=== PATIENT | male | born 1970 | race Caucasian/White ===

== ENCOUNTER 2021-03-13 18:01 | Inpatient (IN) | payer MEDICAID ==
[~2021-03-13] VITALS: Ht 182.9 cm; Wt 65.8 kg
--- NOTE | 2021-03-13 18:24 | NUR ---
pt self presents to ed. ambulatory w/ steady gait. states he started feeling dizzy 30-45 mins ago while walking going to [facility]. pt endorses sob x 1 week but is satting 100% on room air. stable vitals. 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 awaiting md peter.
--- NOTE | 2021-03-13 18:32 | NUR ---
madelinep pa at bedside for eval.
--- NOTE | 2021-03-13 19:02 | NUR ---
radiology at bedside for chest xray.
[2021-03-13 19:11] LABS: BASOPHILS # (AUTO) 0.1 K/uL (0.0-0.2); BASOPHILS % (AUTO) 0.6 % (0.0-2.0); EOSINOPHILS % (AUTO) 4.1 % (0.0-6.0); HEMATOCRIT 34 % (39-51); LYMPHOCYTES # (AUTO) 1.3 K/uL (0.8-4.8); LYMPHOCYTES % (AUTO) 9.6 % (20.0-44.0); MEAN CORPUSCULAR HGB CONC 32 g/dl (31.0-36.0); MEAN CORPUSCULAR VOLUME 81 fL (80-96); MONOCYTES # (AUTO) 1.3 K/uL (0.1-1.30); MONOCYTES % (AUTO) 9.8 % (2.0-12.0); NEUTROPHILS # (AUTO) 9.9 K/uL (1.8-8.9); NEUTROPHILS % (AUTO) 75.9 % (43.0-81.0); PLATELET COUNT (AUTO) 271 K/uL (150-450); RED BLOOD CELL COUNT(AUTO) 4.26 MIL/uL (4.5-6.0); WHITE BLOOD COUNT (AUTO) 13.1 K/uL (4.3-11.0)
[2021-03-13 19:29] LABS: CREATININE 1.6 mg/dL (0.6-1.3); POTASSIUM 4.1 mmol/L (3.5-5.1)
--- NOTE | 2021-03-13 19:36 | NUR ---
TROP 2.999
[2021-03-13] MEDS ORDERED: ASPIRIN 325 MG TABLET ONE (19:41)
[2021-03-13] MEDS ORDERED: IV NS 0.9% 1,000 ML BAG IV ONE (20:00)
[2021-03-13] MEDS ORDERED: ENOXAPARIN SODIUM 60 MG/0.6 ML DISP.SYRIN SQ ONE ×2 (20:00→20:08)
[2021-03-13] MEDS ORDERED: ASPIRIN 325 MG TABLET PO ONE (20:00)
--- NOTE | 2021-03-13 20:02 | NUR ---
DR. AGUILERA SPEAKING WITH DR. DE LA FUENTE
[2021-03-13] MEDS ORDERED: ENOXAPARIN SODIUM 80 MG/0.8 ML DISP.SYRIN SQ ONE (20:11)
--- NOTE | 2021-03-13 20:17 | NUR ---
PT RESTING IN BED. NO SIGNS OF DISTRESS. PT ON ROOM AIR SHOWING NO S/S OF RESP DISTRESS. ALL DUE MEDS GIVEN ORDERED. VSS. WILL CONTINUE TO MONITOR AND ASSESS FOR ANY CHANGES.
--- NOTE | 2021-03-13 20:55 | NUR ---
COVID SPECIMEN COLLECTED AND SENT TO LAB
--- NOTE | 2021-03-13 21:25 | NUR ---
TELE BED 112-1
--- NOTE | 2021-03-13 22:02 | NUR ---
urine collected and sent to lab
--- NOTE | 2021-03-13 22:02 | NUR ---
BEDSIDE REPORT GIVEN TO DAVID GARCIA.
[2021-03-14] MEDS ORDERED: HEPARIN SODIUM, PORCINE 5000 UNITS/1 ML VIAL SQ SCH
[2021-03-14] MEDS ORDERED: ONDANSETRON HCL/PF 4 MG/2 ML VIAL IVP PRN
[2021-03-14] MEDS ORDERED: ATORVASTATIN 10 MG TABLET PO SCH
[2021-03-14 00:25] VITALS: BP 143/88
--- NOTE | 2021-03-14 00:25 | NUR ---
RN NOTES RECEIVED PT FROM ER VIA GURNEY ACCOMPANIED BY 2 ER STAFF AND TRANSFERRED TO BED BY AMBULATION . PT IS A/OX4 ON ROOM AIR WITH RESPIRATIONS EVEN AND UNLABORED. COMPREHENSIVE PHYSICAL ASSESSMENT AND PATIENT CARE DONE. CALL LIGHT WITHIN REACH, SAFETY MEASURES AND ISOLATION PRECAUTION IN PLACE, WILL CONTINUE MONITOR AND ASSESS THROUGHOUT THE SHIFT. WILL CARRY OUT MD ORDERS ACCORDINGLY. PRACTICE REPRESENTATIVE MADE AWARE.
--- NOTE | 2021-03-14 00:28 | NUR ---
transferred to 1121 under acls
--- NOTE | 2021-03-14 01:00 | NUR ---
RN NOTES RECEIVED CRITICAL LAB ; TROPONIN @2.572; PREVIOUSLY AT 2.752. NO COMPLAINTS OF CHEST PAIN. NOTIFIED ONCELISEO HARTMAN (ANTHONY MCCLURE) NO NEW ORDERS. HIM CODER WELL AWARE.
[2021-03-14 04:00] VITALS: BP 178/104
--- NOTE | 2021-03-14 04:00 | NUR ---
RN NOTES NO NOTED CHANGES IN PATIENT CONDITION AT THIS TIME;, NO SIGNS OF ACUTE RESPIRATORY DISTRESS. AM PATIENT CARE RENDERED.WILL CONTINUE TO MONITOR AND REASSESS FOR ANY CHANGES THROUGHOUT THE SHIFT.
--- NOTE | 2021-03-14 04:04 | NUR ---
RN NOTES PT COMPLAINED OF TOLERABLE/MILD PAIN ON HIS L SHOULDER 3/10 FROM A PAIN SCALE OF 0-10. PRN MEDICATION GIVEN PER INDICATION. WILL CONTINUE TO MONITOR AND ASSESS THROUGHOUT THE SHIFT. NEWS ASSISTANT WELL AWARE.
[2021-03-14] MEDS: ACETAMINOPHEN 325 MG TABLET PO PRN ×2 (04:05→11:13)
--- NOTE | 2021-03-14 04:44 | NUR ---
RN NOTES CREMATORIUM OPERATOR NOTIFIED RN REGARDING MOST RECENT V/S. SBP >170 AND HR AT 75. RN INFORMED SKYE HARTMAN (ANTHONY MCCLURE) . WAITING FOR ORDERS. HOME HEALTH CARE CASE MANAGER MADE AWARE. Addendum: 03/14/21 at 0457 by CHUNG EDOUARD RN - NOTED ORDER FOR MORPHINE 2MG IV ONCE; WILL CARRY OUT ORDER. HOME HEALTH CARE CASE MANAGER MADE AWARE. Addendum: 03/14/21 at 0553 by CHUNG EDOUARD RN @0545 PT BP IS AT 158/98 HR 65; WILL CONTINUE TO MONITOR AND ASSESS THROUGHOUT THE SHIFT.
[2021-03-14] MEDS ORDERED: MORPHINE SULFATE INJ 2 MG/ML DISP.SYRIN IV PRN (05:00)
[2021-03-14 05:45] VITALS: BP 158/98
--- NOTE | 2021-03-14 06:42 | NUR ---
RN CLOSING NOTE: PATIENT REMAINS IN ROOM IN NO SIGNS OF RESPIRATORY DISTRESS, PATIENT STILL ON ROOM AIR;TOLERATING WELL SATURATING @ >95% SP02. SAFETY MEASURES IMPLEMENTED, BED IN LOWEST POSITION, LOCKED, SIDE RAILS UP, CALL LIGHT WITHIN REACH.ALL NEEDS AND ORDERS ADDRESSED DURING THE SHIFT. IV ACCESS MAINTAINED INTACT, SECURED AND FLUSHING WELL. ALL DUE MEDS GIVEN ORDERED & SCHEDULED ; PATIENT TOLERATED WELL. PATIENT KEPT CLEAN AND COMFORTABLE WITHIN THE SHIFT. PATIENT ENDORSED TO INCOMING SHIFT RN WITH STABLE VITAL SIGN AND FOR CONTINUITY OF CARE.
--- NOTE | 2021-03-14 07:28 | NUR ---
RN NOTE PATIENT OBSERVED IN BED AWAKE, ALERT AND ORIENTED X4, ADMITTED FOR NSTEMI, NO COMPLAINS OF CHEST PAIN AT THIS TIME, ON TELE MONITOR SINUS RHYTHM, AMBULATORY WITH ASSIST, SKIN INTACT, ON REGULAR CARDIAC DIET, WITH IV ACCESS RIGHT FOREARM GUAGE 18 SALINE LOCK PATENT FLUSHING WELL, BED WHEELS LOCK, BED ALARM ON, CALL LIGHT WITHIN REACH SAFETY MEASURE OBSERVED, WILL CONTINUE TO MONITOR.
[2021-03-14 07:32] LABS: CALCIUM, SERUM 8.9 mg/dL (8.5-10.1); CREATININE 1.3 mg/dL (0.6-1.3); PHOSPHORUS 3.4 mg/dL (2.5-4.9); POTASSIUM 4.2 mmol/L (3.5-5.1)
[2021-03-14 07:43] LABS: BASOPHILS # (AUTO) 0.1 K/uL (0.0-0.2); BASOPHILS % (AUTO) 0.5 % (0.0-2.0); HEMATOCRIT 33 % (39-51); HEMOGLOBIN 10.8 g/dL (13.5-17.5); LYMPHOCYTES # (AUTO) 1.2 K/uL (0.8-4.8); LYMPHOCYTES % (AUTO) 11.5 % (20.0-44.0); MEAN CORPUSCULAR HGB CONC 33 g/dl (31.0-36.0); MEAN CORPUSCULAR VOLUME 79 fL (80-96); MONOCYTES % (AUTO) 9.4 % (2.0-12.0); NEUTROPHILS # (AUTO) 7.8 K/uL (1.8-8.9); NEUTROPHILS % (AUTO) 73.6 % (43.0-81.0); PLATELET COUNT (AUTO) 258 K/uL (150-450); RED BLOOD CELL COUNT(AUTO) 4.13 MIL/uL (4.5-6.0); WHITE BLOOD COUNT (AUTO) 10.6 K/uL (4.3-11.0)
[2021-03-14 08:00] VITALS: BP_SYST 105; BP_SYST 147; BP_DIAS 78; BP_DIAS 90
[2021-03-14] MEDS ORDERED: ASPIRIN 81 MG TAB.CHEW PO SCH (09:00)
[2021-03-14] MEDS ORDERED: ENOXAPARIN SODIUM 60 MG/0.6 ML DISP.SYRIN SQ SCH (09:00)
[2021-03-14] MEDS ORDERED: IV NS 0.9% 1,000 ML IV PRN (09:00)
[2021-03-14] MEDS ORDERED: HYDR-3980 PO (09:09)
--- NOTE | 2021-03-14 09:16 | NUR ---
RN NOTE PATIENT ALERT AND ORIENTED ABLE TO MAKE DECISION. SIGNED INFORMED CONSENT FOR COMPUTERIZE TOMOGRAPHY ANGIOGRAPHY OF THE HEART WITH INTRAVENOUS CONTRAST.
[2021-03-14] MEDS ORDERED: IOHEXOL-350 100 ML VIAL IV ONE (09:49)
[2021-03-14] MEDS ORDERED: NITROGLYCERIN 0.4 MG/TAB BOTTLE ONE (09:49)
[2021-03-14] MEDS ORDERED: METOPROLOL TARTRATE INJ 5 MG/5 ML AMPUL ONE (09:49)
[2021-03-14] MEDS ORDERED: CT SWABBABLE VALVE TRANS SET 1 EA INFUS.SET MC ONE (09:49)
[2021-03-14] MEDS ORDERED: IV NS 0.9% 250 ML IV ONE (09:50)
[2021-03-14] MEDS: METOPROLOL TARTRATE INJ 5 MG/5 ML AMPUL IVP PRN ×3 (09:50→10:00)
[2021-03-14] MEDS ORDERED: IV NS 0.9% 500 ML IV PRN (10:00)
[2021-03-14] MEDS ORDERED: NITROGLYCERIN 0.4 MG/TAB BOTTLE SL ONE (10:00)
[2021-03-14 12:00] VITALS: BP 146/73
[2021-03-14] MEDS ORDERED: METOPROLOL TARTRATE 50 MG TABLET PO SCH (12:00)
[2021-03-14] MEDS ORDERED: HYDROCODONE/APAP 5/325MG TABLET PO PRN (12:00)
--- NOTE | 2021-03-14 12:00 | NUR ---
RN NOTE PATIENT REFUSING TELEMETRY EXPLAINED RISK AND BENIFITS OF TELEMONITORING, NOTIFIED DR. ZAFAR RELAYED CT ANGIOGRAPHY RESULT.
[2021-03-14 12:15] VITALS: BP 119/77
[2021-03-14] MEDS ORDERED: ATOR10TA PO (12:34)
[2021-03-14] MEDS ORDERED: ASPI-1169 PO (12:34)
--- NOTE | 2021-03-14 13:30 | NUR ---
"SS Consult: SS requested for homelessness. The pt. Is a 50-year-old homeless male who presents to [facility] with complaints of dizziness, shortness of breath and chest pain per EMR. Per EMR, the pt. used speed a few days prior to arrival and pt. has generalized weakness and lightheadedness. The pt. is A&O x 3 and appears unkempt and disheveled. Pt.s mood is elevated and speech is loud. Pt. was cooperative and provided poor eye contact. Pt. stated he has no friends or family. Pt. stated he is homeless and lives in the [facility]. SW offered the pt. homeless resources and pt. accepted them. SW offered [place] [facility] [place] and the pt. is agreeable. The pt. stated he is ambulatory and doesnt use DMEs. The pt. denies alcohol and drug abuse but stated he drank two days prior to arrival. The pt. denies visual and auditory hallucinations. The pt. does not receive social security, general relief, food stamps or disability. The pt. denies SI/HI and denies current hallucinations. Plan: Pt. is agreeable to [place] [facility] [place] [facility]. SW discussed with pt.s nurse. Nursing to inform SW when pt. is medically cleared for placement at a [place] [facility] [place]. Pt. signed homeless waiver and it was placed in the pt.s chart. MARITZA provided pt. with the following homeless resources and pt. accepted them: Year-round shelters: [facility] [address] [place] [address] ; [facility] [address] [place] [address]; [facility] [id number] [facility] [address] Winter Shelters: [place] Maura [employer] Provider: [facility] [place] Address: [address] [facility] [place], [address] # of Beds: 47 Population Served: [facility] 6 | [facility] Gracy Mac [place] Provider: [facility] Last Address: [address] [place] [address], [address] # of Beds: 66 Population Served: [facility] [place] Provider: [facility] Address: [id number] [place] [address], [address] # of Beds: 56 Population Served: [place] Provider: [facility] Address: [address] [facility], [address] # of Beds: 49 Population Served: [facility]PA 8 | [facility] Provider: First to Serve Address: [address] [facility] [place], [address] # of Beds: 37 Population Served: Co[facility] Hygiene: [facility]: [address] [place] ; [facility] [address] [facility] ; [facility] [address] [facility] [place] . Food Resources: [place] [facility] at [facility]- [address] [facility]; Meet Each Need with Dignity ([facility]) [address] [facility]; [facility] [address]387 [facility]; [facility] [address] [facility] [place]. Mental Health resources provided: [facility] [address] [place], [place] [phone] ; [facility] [address] [facility] [address], [place], [place] [id number] ; Rebeca Preston [facility] [address] [place], [place] [phone] ; [facility] [address] [place], [place] [id number] Healthcare Clinics: [facility] [address] [facility], [address] [place]. [place] ; [facility] [address] [facility] [address] [place] [address]; [facility] [address] [facility]. [place] [phone] Counseling--Outpatient [facility] [address] [facility], [place] [address] (Specializes in in-depth psychotherapy for emotional distress: anxiety, depression, interpersonal conflicts, life transitions, childhood abuse) [facility] [address] [place] [address] (Assist with solving problem marital difficulties, separation & divorce, aging parents, & grief, chronic & terminal illness) [facility] [address] [place] [address] (Deal with loss & grief, anxiety, marital difficulties) Homebound/Mental Health Services [address] [facility] [address] [place] [address] (Provide in-home mental services to people who are incapable of leaving their homes) [facility] Needs of the Elderly Senior Service/Resource Center [address] [place] [address] [facility] [address] [place], [place] [phone] PSYCHIATRIC OUTPATIENT SERVICES [facility] Partial Hospitalization and Intensive Outpatient Program (Managed Care and [place] Only)[address] [facility] [phone] [facility] Partial Hospitalization and Outpatient Rlaxwqe63574 [facility] [address] [place], [place] [phone] [facility] [place] [address] [facility] [address] [place], [place] [phone] [facility] Partial Hospitalization and Outpatient Gyztqtm71327 [place], [phone] Substance Abuse resources provided included: [facility] Substance Abuse Self-Helpline (SAS) ; CRI -HELP [address] [facility]. [place] [address] ; [facility] [address] [facility] [address] ; [facility] Program [address] [facility]. [place] [phone] ; [facility] [address] [address] ; [facility] [address] [facility] [address] ; [facility] [address]09 [facility] [phone] ; [facility] Substance Abuse Helpline(SAS)-[facility] ; [facility] Family Counseling ; [facility]; [facility]; Cri[facility]Help [place]; [facility] Fidel Matthews; [place] [facility] [place]; [facility] [place]; [facility] [place]; [facility], [facility]. [facility]; Alcoholics Anonymous -SFV; Gv-Nxxi-Qxmnxkq ; Marijuana Anonymous -SFV; Narcotics Anonymous www.na.org;"
--- NOTE | 2021-03-14 13:45 | NUR ---
patient discharge refused to sign discharge papers per patient he is in a hurry late for appointment.
== END 2021-03-14 14:03 | disposition home or self-care (01) | DRG 190 ==
LOC: ER 18:06 → TELE1 21:14
PROVIDERS: ADMIT Nurse Practitioner Acute Care
DX: I21.4 Non-ST elevation (NSTEMI) myocardial infarction (principal); N17.0 Acute kidney failure with tubular necrosis; I10 Essential (primary) hypertension; Z59.00 Homelessness unspecified; D64.9 Anemia, unspecified; E86.0 Dehydration; D72.829 Elevated white blood cell count, unspecified; J45.909 Unspecified asthma, uncomplicated; F19.10 Other psychoactive substance abuse, uncomplicated; Z20.822 Contact with and (suspected) exposure to COVID-19; Z87.891 Personal history of nicotine dependence
CPT/HCPCS: 36415; 71045-TC; 71046; 75574; 80048-TC; 80061-TC; 83735-TC; 84100-TC; 84484-TC; 85025-TC; 85378-TC; 87081-TC; 93307-TC; C9803; G0378; J1644; J1650; J2270; J3490; J7050; Q9967; U0003